=== PATIENT | male | born 1970 | race Caucasian/White ===

== ENCOUNTER → 2019-01-13 15:12 | Outpatient (CLI) | payer BC, SELFPAY ==
[2019-01-13 16:45] LABS: Basophils # 0.1 K/mm3 (0-0.2); Eosinophils # 0.9 K/mm3 (0.0-0.4); Eosinophils % 11.7 % (0.1-12.0); Hematocrit 47.9 % (42.0-52.0); Hemoglobin 15.6 g/dL (14.1-18.0); Lymphocytes # 1.4 K/mm3 (0.7-4.5); Lymphocytes % 19.2 % (10-50); Mean Corpuscular HGB Conc 32.6 g/dL (31.8-35.4); Mean Corpuscular Hemoglobin 30.7 pg (27.0-31.2); Mean Platelet Volume 8.7 fl (7.4-10.4); Monocytes # 0.5 K/mm3 (0.1-1.0); Monocytes % 6.1 % (1.7-9.3); Neutrophils # 4.5 K/mm3 (1.8-7.8); Platelet Count 363 K/mm3 (142-424); Red Blood Count 5.09 M/mm3 (4.60-6.20); Red Cell Distribution Width 13.1 % (11.5-17.5); White Blood Count 7.3 K/mm3 (4.8-10.8)
[2019-01-13 18:31] LABS: Alanine Aminotransferase 34 U/L (12-78); Albumin/Globulin Ratio 1.2 (1.1-1.8); Alkaline Phosphatase 85 U/L (46-116); Anion Gap 12.5 mEq/L (5-15); Aspartate Amino Transferase 17 U/L (15-37); Bilirubin,Total 0.2 mg/dL (0.2-1.0); Blood Urea Nitrogen 17 mg/dL (7-18); Calcium 9.2 mg/dL (8.5-10.1); Carbon Dioxide 29 mmol/L (21.0-32.0); Chloride 102 mmol/L (98-107); Cholesterol 209 mg/dL (140-200); Creatinine,Serum 1.22 mg/dL (0.70-1.30); Estimated Glomerular Filt Rate 63 ml/min (>60); Free T4 (Free Thyroxine) 0.77 ng/dl (0.76-1.46); GFR (African American) 77 ML/MIN (>60); Globulin 3.3 gm/dl (1.3-3.2); Glucose 94 mg/dL (74-106); HDL Cholesterol 70 mg/dL (27-67); LDL Cholesterol 105 mg/dL (0-130); Potassium 4.5 mmoL/L (3.5-5.1); Sodium 139 mmol/L (136-145); Thyroid Stimulating Hormone 0.88 uIU/ml (0.358-3.740); Total Protein,Serum 7.3 gm/dL (6.4-8.2); Triglycerides 171 mg/dL (30-200); VLDL Cholesterol 34 mg/dL (0-40)
[2019-01-15 12:03] LABS: Vitamin D 25 Hydroxy 21.4 ng/mL (30.0-100.0)
== END ==
PROVIDERS: Visit Provider Emergency Medicine
DX: R07.9 Chest pain, unspecified (principal); R53.83 Other fatigue; E55.9 Vitamin D deficiency, unspecified
CPT/HCPCS: 80053; 80061; 82652; 84439; 84443; 85025

== ENCOUNTER → 2019-01-27 11:15 | Outpatient (CLI) | payer BC, SELFPAY ==
--- NOTE | 2019-01-27 | CA_ITS ---
APPROVED REPORT Exam: Exercise Treadmill Technologist: Isabel Dennis Ht: 6 ft 0 in Wt: 240 lbs BSA: 2.30 m2 HR: 62 bpm BP: 127/85 mmHg Indications: Fatigue, chest pain Medical History Medications: Lisinopril,,,,, Stress Test Details Test: Srinivasan HR Resting HR: 61 bpm Max Heart Rate (APMHR): 172 bpm Max HR Achieved: 163 bpm Target HR (85% APMHR): 146 bpm % of APMHR: 94 Recovery HR: 73 bpm BP Resting BP: 127.0/85.0 mmHg Max BP: 190.0/102.0 mmHg Recovery BP: 162.0/87.0 mmHg ECG Clinical Exercise duration: 11:01 min Highest Stage Achieved: Exercise capacity: 12.8 METs Stress ECG Conclusion Resting ECG: Sinus rhythm Srinivasan protocol completed. Patient exercised 11:01. Test stopped due to leg fatigue. Symptoms: Leg fatigue at peak exercise, resolved in recovery. No chest pain. Arrhythmias/Ectopy: Occasional PVC. Occasional PAC. ST-T Changes: Greater than 1.[address] depression. Conclusion: Images to follow. Test Summary REST . . . . . . . Sitting REST 09:12 0.0 0.0 61 . 127/ 85 . . Stage 1 01:00 10.0 1.7 88 . . . . Stage 1 02:00 10.0 1.7 93 . . . . Stage 1 03:00 10.0 1.7 96 . 130/ 84 . . Stage 2 01:00 12.0 2.5 104 . . . . Stage 2 02:00 12.0 2.5 106 . . . . Stage 2 03:00 12.0 2.5 117 . 150/ 92 . . Stage 3 01:00 14.0 3.4 122 . . . . Stage 3 02:00 14.0 3.4 129 . . . . Stage 3 03:00 14.0 3.4 131 . 158/ 96 . . Stage 4 01:00 16.0 4.2 148 . . . . Stage 4 02:00 16.0 4.2 162 . . . . Stage 4 02:01 16.0 4.2 162 . . . Stop exercise at 11:01 RECOVERY 01:00 0.0 0.0 135 . 190/102 . . RECOVERY 02:00 0.0 0.0 105 . 190/102 . . RECOVERY 03:00 0.0 0.0 78 . 190/102 . . RECOVERY 04:00 0.0 0.0 75 . 178/ 88 . . RECOVERY 04:59 0.0 0.0 74 . 162/ 87 . . Electronically signed by : Avery Correia, 01/28/2019 06:40:00
--- NOTE | 2019-01-27 11:17 | NM_ITS ---
APPROVED REPORT Exam: Nuclear Stress Test Indication: Chest pain, SOB, Fatigue, HTN Patient Location: Outpatient Stress Tech: Isabel Dennis NM Tech:Greta Garrett, ARRT, RT (R)(N) Ht: 6 ft 0 in Wt: 240 lbs HR: 62 bpm BP: 127/85 mmHg BSA: 2.30 m2 History: Chest pain, SOB, Fatigue, HTN Procedure: Patient exercised on Srinivasan protocol 11:01 minutes and sec, resting heart rate 62 bpm, resting blood pressure 127/85 mmHg, with exercise maximum heart rate achived was 163 bpm which is Greater than 85 % of the maximum predicted heart rate and blood pressure was 190/102 mmHg. Test was stopped due to sob. Patient denied any complaint of chest pain. Patient has Good exercise capacity, achieved 12.8 METs of workload on treadmill, the blood pressure response to exercise was Hypertensive. Electrocardiogram Resting electrocardiogram showed sinus rhythm, with exercise there is less than 1.[address] segment depression noted from the baseline EKG. The EKG portion of the exercise Myoview is negative for ischemia. Cardiac Stress and Resting SPECT Images: Cardiac Stress and Resting SPECT images were obtained using technetium 99m Myoview 32.5 mCi stress and 10.50 mCi at rest. Gated SPECT with analysis of segmental wall motion and calculation of the ejection fraction also done. Cardiac stress and resting SPECT images show uniform myocardial activity without segmental perfusion abnormality, computer derived ejection fraction is over 65% with no regional wall motion abnormality, right ventricle is normal size and contractility. Conclusion: 1. The EKG portion of the exercise Myoview is negative for ischemia, she has good exercise capacity achieved 12.8 mets of workload on treadmill, the blood pressure response to exercise was hypertensive, there was no exercise-induced chest discomfort, test was stopped due to shortness of breath. 2. No scintigraphic evidence of reversible ischemia seen at this level of exercise, computer derived ejection fraction is over 65% with no regional wall motion abnormality, right ventricle is normal size and contractility. 3. Normal exercise Myoview study except for hypertensive blood pressure response. Electronically signed by : Avery Correia, 01/28/2019 06:46:29
--- NOTE | 2019-01-27 13:07 | HMH.ITSHM ---
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 []LISINOPRIL
== END ==
PROVIDERS: PCP Emergency Medicine; Visit Provider Emergency Medicine
DX: R07.9 Chest pain, unspecified (principal)
CPT/HCPCS: 78452; 93017; A9502

== ENCOUNTER → 2019-02-09 19:59 | Outpatient (CLI) | payer BC, SELFPAY | PROVIDERS: PCP Emergency Medicine; Visit Provider Emergency Medicine | DX: G47.33 Obstructive sleep apnea (adult) (pediatric) (principal); I10 Essential (primary) hypertension; R40.0 Somnolence; R06.00 Dyspnea, unspecified | CPT/HCPCS: 95810 ==

== ENCOUNTER → 2019-07-09 13:20 | Outpatient (CLI) | payer BC, SELFPAY ==
--- NOTE | 2019-07-09 13:24 | XR_ITS ---
PROCEDURE: XR FOOT WT BEARING RT 3V CLINICAL INDICATION: pain Heel pain COMPARISON: Foot R from 10/16/2018 FINDINGS: No fracture or dislocation. There are mild osteoarthritic changes at the ankle joint with mild spurring at the anterior distal tibia. Mild osteoarthritis also noted at the 1st metatarsophalangeal joint and at the 1st tarsal metatarsal joint. There is borderline pes planus. There is a small calcaneal spur without erosion. There is mild prominence of the posterior talar process. IMPRESSION: Mild degenerative changes as described above. Small calcaneal spur unchanged. Mildly prominent posterior talar process Dictated by: Isaac Ramírez MD 07/09/2019 14:20 Electronically signed by Isaac Ramírez MD in [place] 07/09/2019 14:20
--- NOTE | 2019-07-09 13:24 | XR_ITS ---
PROCEDURE: XR FOOT WT BEARING LT 3V CLINICAL INDICATION: pain COMPARISON: Foot R from 10/16/2018 FINDINGS: No fracture or dislocation. No lytic or blastic change. There is normal mineralization. There are minimal osteoarthritic changes at the 1st metatarsophalangeal joint. Osteoarthritic changes are also present at the ankle joint with of the anterior distal tibia and mild hypertrophic change of the talus. There is a small calcaneal spur without erosion and there is mildly prominent posterior talar process. Other findings:None. IMPRESSION: Degenerative changes, no acute finding. Small calcaneal spur and mildly prominent posterior talar process Dictated by: Isaac Ramírez MD 07/09/2019 14:21 Electronically signed by Isaac Ramírez MD in [facility] 07/09/2019 14:21
== END ==
PROVIDERS: PCP Emergency Medicine; Visit Provider Podiatrist
DX: M79.671 Pain in right foot (principal); M79.672 Pain in left foot
CPT/HCPCS: 73630

== ENCOUNTER → 2020-03-30 10:31 | Outpatient (CLI) | payer BC, SELFPAY ==
[2020-03-31 10:32] LABS: Covid-19 Nasal PCR Sendout P&C POSITIVE
== END ==
PROVIDERS: PCP Emergency Medicine; Visit Provider Physician Assistant
DX: U07.1 COVID-19 (principal)
CPT/HCPCS: U0004

== ENCOUNTER → 2020-04-11 17:06 | Outpatient (CLI) | payer BC, SELFPAY ==
[2020-04-11 18:51] LABS: Basophils # 0.1 K/mm3 (0-0.2); Basophils % 0.7 % (0.1-2.0); Eosinophils # 0.2 K/mm3 (0.0-0.4); Eosinophils % 3.6 % (0.1-12.0); Hematocrit 43.2 % (42.0-52.0); Hemoglobin 14.8 g/dL (14.1-18.0); Lymphocytes % 29.6 % (10-50); Mean Corpuscular HGB Conc 34.2 g/dL (31.8-35.4); Mean Corpuscular Hemoglobin 31.2 pg (27.0-31.2); Mean Corpuscular Volume 91.4 fl (80-94); Mean Platelet Volume 8.2 fl (7.4-10.4); Monocytes # 0.5 K/mm3 (0.1-1.0); Monocytes % 8.1 % (1.7-9.3); Neutrophils # 3.8 K/mm3 (1.8-7.8); Neutrophils % 57.9 % (37.0-80.0); Platelet Count 401 K/mm3 (142-424); Red Blood Count 4.73 M/mm3 (4.60-6.20); Red Cell Distribution Width 13.1 % (11.5-17.5); White Blood Count 6.6 K/mm3 (4.8-10.8)
[2020-04-11 19:02] LABS: Alanine Aminotransferase 30 U/L (12-78); Albumin Level 4.5 g/dl (3.5-5.0); Albumin/Globulin Ratio 1.6 (1.1-1.8); Alkaline Phosphatase 96 U/L (38-126); Anion Gap 9.7 mEq/L (5-15); Aspartate Amino Transferase 33 U/L (17-59); Bilirubin,Total 0.4 mg/dl (0.2-1.3); Blood Urea Nitrogen 15 mg/dl (9-20); Calcium 9.8 mg/dl (8.4-10.2); Carbon Dioxide 28 mmol/L (22.0-30.0); Chloride 103 mmol/L (98-107); Chol/HDL Ratio 2.8 (1-3.5); Cholesterol 210 mg/dl (140-200); Estimated Glomerular Filt Rate 90 ml/min (>60); GFR (African American) 109 ML/MIN (>60); Globulin 2.8 g/dL (1.3-3.2); Glucose 110 mg/dl (74-100); HDL Cholesterol 76 mg/dl (40-60); Potassium 4.7 mmoL/L (3.5-5.1); Sodium 136 mmol/L (136-145); Total Protein,Serum 7.3 g/dl (6.3-8.2); Triglycerides 204 mg/dl (30-150); VLDL Cholesterol 41 mg/dL (0-40)
[2020-04-11 19:13] LABS: Direct LDL Cholesterol 110.67 mg/dL (100-129)
[2020-04-11 19:19] LABS: Free T4 (Free Thyroxine) 0.95 ng/dl (0.78-2.19)
[2020-04-11 19:20] LABS: 25-OH Vitamin D, Total 27.4 ng/mL (30-100)
[2020-04-11 19:33] LABS: Thyroid Stimulating Hormone 0.83 uIU/mL (0.465-4.68)
== END ==
PROVIDERS: Visit Provider Physician Assistant
DX: I10 Essential (primary) hypertension (principal); E55.9 Vitamin D deficiency, unspecified; Z79.899 Other long term (current) drug therapy
CPT/HCPCS: 80053; 80061; 82306; 84439; 84443; 85025

== ENCOUNTER → 2020-05-17 15:00 | Outpatient (POV) | payer BC, SELFPAY | PROVIDERS: Visit Provider Dermatology | DX: Z00.00 Encounter for general adult medical examination without abnormal findings (principal) ==

== ENCOUNTER 2020-08-03 20:08 | Emergency (ER) | payer BC, SELFPAY ==
[2020-08-03 20:11] VITALS: BMI 29.1
--- NOTE | 2020-08-03 20:11 | XR_ITS ---
PROCEDURE INFORMATION: Exam: XR Chest Exam date and time: 08/03/20 08:11 PM Age: 49 years old Clinical indication: Injury or trauma; Fall; Blunt trauma (contusions or hematomas); Injury date: 08/03/2020; Injury details: Fell 5 ft from a ladder; Patient HX: Fell off ladder 5 ft TECHNIQUE: Imaging protocol: XR of the chest. Views: 1 view. COMPARISON: No relevant prior studies available. FINDINGS: Lungs: Unremarkable. No consolidation. Pleural spaces: Unremarkable. No pleural effusion. No pneumothorax. Heart/Mediastinum: Unremarkable. No cardiomegaly. Bones/joints: Unremarkable. IMPRESSION: No acute findings.
--- NOTE | 2020-08-03 20:11 | XR_ITS ---
PROCEDURE INFORMATION: Exam: XR Pelvis Exam date and time: 08/03/20 08:11 PM Age: 49 years old Clinical indication: Injury or trauma; Fall; Blunt trauma (contusions or hematomas); Bilateral; Pelvic region; Injury date: 08/03/2020; Injury details: Fell 5 ft from ladder TECHNIQUE: Imaging protocol: XR pelvis. Views: 1 or 2 view. COMPARISON: No relevant prior studies available. FINDINGS: Bones/joints: Unremarkable. No acute fracture. Soft tissues: Unremarkable. IMPRESSION: No acute findings.
--- NOTE | 2020-08-03 20:12 | CT_ITS ---
PROCEDURE INFORMATION: Exam: CT Abdomen And Pelvis With Contrast Exam date and time: 08/03/20 08:12 PM Age: 49 years old Clinical indication: Injury or trauma; Fall; Blunt; Generalized; Injury date: 08/03/2020; Injury details: Fell 5 ft from ladder landed on left side; Additional info: Fall/trauma protocol TECHNIQUE: Imaging protocol: Computed tomography of the abdomen and pelvis with contrast. Radiation optimization: All CT scans at this facility use at least one of these dose optimization techniques: automated exposure control; mA and/or kV adjustment per patient size (includes targeted exams where dose is matched to clinical indication); or iterative reconstruction. Contrast material: ISOVUE; Contrast volume: 100 ml; Contrast route: IV; COMPARISON: CR XR PELVIS 1-2V 08/03/20 08:17 PM FINDINGS: Tubes, catheters and devices: None noted. Lungs: Lung bases appear clear. Heart: No significant coronary calcifications. No cardiomegaly. No significant pericardial effusion. Liver: Normal. No mass. Gallbladder and bile ducts: Normal. No calcified stones. No ductal dilation. Pancreas: Normal. No ductal dilation. Spleen: Normal. No splenomegaly. Adrenal glands: Normal. No mass. Kidneys and ureters: Normal. No hydronephrosis. Stomach and bowel: Unremarkable. No obstruction. No mucosal thickening. Appendix: Appendix is well visualized. No evidence of appendicitis. Intraperitoneal space: Unremarkable. No free air. No significant fluid collection. Retroperitoneal space: No significant retroperitoneal inflammatory changes are noted. Vasculature: Unremarkable. No abdominal aortic aneurysm. Lymph nodes: Unremarkable. No enlarged lymph nodes. Urinary bladder: Unremarkable as visualized. Reproductive: Unremarkable as visualized. Bones/joints: Unremarkable. No acute fracture. Soft tissues: Unremarkable. IMPRESSION: No acute traumatic findings.
--- NOTE | 2020-08-03 20:12 | CT_ITS ---
PROCEDURE INFORMATION: Exam: CTA Chest With Contrast Exam date and time: 08/03/20 08:12 PM Age: 49 years old Clinical indication: Injury or trauma; Fall; Blunt trauma (contusions or hematomas); Injury date: 08/03/2020; Injury details: Fell 5 ft from ladder and hit back of head and landed on left side of body; Additional info: Fall/trauma protocol TECHNIQUE: Imaging protocol: Computed tomographic angiography of the chest with contrast. 3D rendering (Not supervised by radiologist): MIP and/or 3D reconstructed images were created by the technologist. Radiation optimization: All CT scans at this facility use at least one of these dose optimization techniques: automated exposure control; mA and/or kV adjustment per patient size (includes targeted exams where dose is matched to clinical indication); or iterative reconstruction. Contrast material: ISCVUE 370; Contrast volume: 100 ml; Contrast route: INTRAVENOUS (IV); COMPARISON: CR XR CHEST PORTABLE 08/03/20 08:14 PM FINDINGS: Pulmonary arteries: Normal. No pulmonary emboli. Aorta: Unremarkable. No aortic aneurysm. No aortic dissection. Lungs: Minimal dependent atelectasis. No consolidation. No masses. Pleural spaces: Unremarkable. No pneumothorax. No pleural effusion. Heart: Unremarkable. No cardiomegaly. No pericardial effusion. Lymph nodes: Unremarkable. No enlarged lymph nodes. Bones/joints: Unremarkable. No acute fracture. Soft tissues: Unremarkable. IMPRESSION: No acute traumatic findings.
--- NOTE | 2020-08-03 20:12 | CT_ITS ---
PROCEDURE INFORMATION: Exam: CT Cervical Spine Without Contrast Exam date and time: 08/03/20 08:12 PM Age: 49 years old Clinical indication: Injury or trauma; Fall; Blunt trauma; Injury date: 08/03/2020; Injury details: Fell 5 ft from ladder and hit back of head left side laceration seen left post head TECHNIQUE: Imaging protocol: Computed tomography images of the cervical spine without contrast. Radiation optimization: All CT scans at this facility use at least one of these dose optimization techniques: automated exposure control; mA and/or kV adjustment per patient size (includes targeted exams where dose is matched to clinical indication); or iterative reconstruction. COMPARISON: No relevant prior studies available. FINDINGS: Vertebrae: No acute fracture. Normal alignment. C2-C3: No significant disc protrusion. No severe spinal canal stenosis. No significant neural foraminal narrowing. C3-C4: No significant disc protrusion. No severe spinal canal stenosis. No significant neural foraminal narrowing. C4-C5: No significant disc protrusion. No severe spinal canal stenosis. No significant neural foraminal narrowing. C5-C6: No significant disc protrusion. No severe spinal canal stenosis. No significant neural foraminal narrowing. C6-C7: No significant disc protrusion. No severe spinal canal stenosis. No significant neural foraminal narrowing. C7-T1: No significant disc protrusion. No severe spinal canal stenosis. No significant neural foraminal narrowing. Soft tissues: Unremarkable. Lungs: Lung apices are normal. IMPRESSION: No acute findings.
--- NOTE | 2020-08-03 20:12 | CT_ITS ---
PROCEDURE INFORMATION: Exam: CT Head Without Contrast Exam date and time: 08/03/20 08:12 PM Age: 49 years old Clinical indication: Injury or trauma; Fall; Blunt trauma (contusions or hematomas); Without loss of consciousness; Injury date: 08/03/2020; Injury details: Fell 5 ft from ladder and hit left post head laceration seen TECHNIQUE: Imaging protocol: Computed tomography of the head without contrast. Radiation optimization: All CT scans at this facility use at least one of these dose optimization techniques: automated exposure control; mA and/or kV adjustment per patient size (includes targeted exams where dose is matched to clinical indication); or iterative reconstruction. COMPARISON: No relevant prior studies available. FINDINGS: Brain: Normal. No hemorrhage. Unremarkable white matter. No mass effect. Cerebral ventricles: No ventriculomegaly. Paranasal sinuses: Visualized sinuses are unremarkable. No fluid levels. Mastoid air cells: Visualized mastoid air cells are well aerated. Bones/joints: Unremarkable. No acute fracture. Soft tissues: Unremarkable. IMPRESSION: No acute intracranial abnormality.
[2020-08-03 20:14] VITALS: BP 156/93; PULSE 66; RESP 16; TEMP 36.9; O2SAT 95
[2020-08-03 20:21] LABS: Basophils # 0.1 K/mm3 (0-0.2); Basophils % 0.9 % (0.1-2.0); Eosinophils # 0.2 K/mm3 (0.0-0.4); Eosinophils % 2.7 % (0.1-12.0); Hematocrit 43.9 % (42.0-52.0); Hemoglobin 14.7 g/dL (14.1-18.0); Lymphocytes % 28.3 % (10-50); Mean Corpuscular HGB Conc 33.5 g/dL (31.8-35.4); Mean Corpuscular Hemoglobin 30.3 pg (27.0-31.2); Mean Corpuscular Volume 90.5 fl (80-94); Mean Platelet Volume 7.1 fl (7.4-10.4); Monocytes # 0.5 K/mm3 (0.1-1.0); Neutrophils # 4.4 K/mm3 (1.8-7.8); Platelet Count 380 K/mm3 (142-424); Red Blood Count 4.85 M/mm3 (4.60-6.20); Red Cell Distribution Width 13.1 % (11.5-17.5); White Blood Count 7.2 K/mm3 (4.8-10.8)
--- NOTE | 2020-08-03 20:24 | CT_ITS ---
PROCEDURE INFORMATION: Exam: CT Left Lower Extremity Without Contrast, Hip Exam date and time: 08/03/20 08:24 PM Age: 49 years old Clinical indication: Injury or trauma; Fall; Blunt trauma; Injury date: 08/03/2020; Patient HX: Fell 5 ft from ladder and pain in left hip; Additional info: Fall/trauma TECHNIQUE: Imaging protocol: CT of the Left lower extremity without contrast was performed. Exam focused on the hip. 3D rendering (Not supervised by radiologist): MIP and/or 3D reconstructed images were created by the technologist. Radiation optimization: All CT scans at this facility use at least one of these dose optimization techniques: automated exposure control; mA and/or kV adjustment per patient size (includes targeted exams where dose is matched to clinical indication); or iterative reconstruction. COMPARISON: CR XR PELVIS 1-2V 08/03/20 08:17 PM FINDINGS: Bones/joints: Normal. No acute fracture or dislocation. Soft tissues: Normal. IMPRESSION: Unremarkable CT.
[2020-08-03 20:29] LABS: Alanine Aminotransferase 35 U/L (12-78); Albumin Level 4.5 g/dl (3.5-5.0); Albumin/Globulin Ratio 1.6 (1.1-1.8); Alkaline Phosphatase 82 U/L (38-126); Anion Gap 9.2 mEq/L (5-15); Aspartate Amino Transferase 38 U/L (17-59); Bilirubin,Total 0.5 mg/dl (0.2-1.3); Blood Urea Nitrogen 17 mg/dl (9-20); Calcium 8.8 mg/dl (8.4-10.2); Carbon Dioxide 26 mmol/L (22.0-30.0); Chloride 104 mmol/L (98-107); Creatinine Clearance Estimated 123 mL/min (50-200); Estimated Glomerular Filt Rate 79 ml/min (>60); GFR (African American) 96 ML/MIN (>60); Globulin 2.9 g/dL (1.3-3.2); Glucose 111 mg/dl (74-100); Potassium 4.2 mmoL/L (3.5-5.1); Sodium 135 mmol/L (136-145); Total Protein,Serum 7.4 g/dl (6.3-8.2)
--- NOTE | 2020-08-03 20:29 | PC.NURSE ---
Pt to CT
--- NOTE | 2020-08-03 21:06 | HMH.EDFALL ---
ED Disposition Clinical Impression: Fall Qualifiers: Encounter type: initial encounter Qualified Code(s): W19.XXXA - Unspecified fall, initial encounter Scalp laceration Qualifiers: Encounter type: initial encounter Qualified Code(s): S01.01XA - Laceration without foreign body of scalp, initial encounter Contusion of hip, left Qualifiers: Encounter type: initial encounter Qualified Code(s): S70.02XA - Contusion of left hip, initial encounter Concussion Qualifiers: Encounter type: initial encounter Loss of consciousness presence/duration: without LOC Qualified Code(s): S06.0X0A - Concussion without loss of consciousness, initial encounter Disposition: Home, Self-Care Condition on Discharge: Good Instructions: DI for Concussion Additional Instructions: bakari out 10 days and recheck with pcp this week Referrals: Provider,Referral, [Referring] - - Critical Care Critical Care Time: No Attestation: On 08/03/20, the high probability of a clinically significant, sudden or life threatening deterioration of the following system(s) required my full and direct attention, intervention and personal management. The time I documented below is in addition to time spent performing reported procedures but includes the following listed in this critical care notation. Medical Decision Making - Medical Records Medical records reviewed: Yes: I reviewed the patient's medical records. - Alex Inquiry Pt receiving controlled substance: No Vital Signs: 08/03/20 20:14 08/03/20 21:51 Temperature 98.5 F Temperature Source Oral Pulse Rate 70 Pulse Rate [Right] 66 Respiratory Rate 16 16 Blood Pressure 141/91 H Blood Pressure [Right Arm] 156/93 H Blood Pressure Mean [Right Arm] 114 Blood Pressure Source Automatic Cuff Blood Pressure Position Sitting Blood Pressure Position [Right Arm] Sitting 02 Sat by Pulse Oximetry 95 98 Oxygen Delivery Method Room Air Room Air - Lab Data Lab results reviewed: Yes: I reviewed the patient's lab results. Lab Results 08/03/20 20:05: WBC 7.2, RBC 4.85, Hgb 14.7, Hct 43.9, MCV 90.5, MCH 30.3, MCHC 33.5, RDW 13.1, Plt Count 380, MPV 7.1 L, Neut % (Auto) 61.0, Lymph % (Auto) 28.3, [place] % (Auto) 7.0, Eos % (Auto) 2.7, Baso % (Auto) 0.9, Neut # (Auto) 4.4, Lymph # (Auto) 2.0, [place] # (Auto) 0.5, Eos # (Auto) 0.2, Baso # (Auto) 0.1 08/03/20 20:05: Sodium 135 L, Potassium 4.2, Chloride 104, Carbon Dioxide 26, Anion Gap 9.2, BUN 17, Creatinine 1.00, Estimated Creat Clear 123, Estimated GFR 79, Est GFR ( Amer) 96, Glucose 111 H, Calcium 8.8, Total Bilirubin 0.5, AST 38, ALT 35, Alkaline Phosphatase 82, Total Protein 7.4, Albumin 4.5, Globulin 2.9, Albumin/Globulin Ratio 1.6 Result diagrams: 08/03/20 20:05 08/03/20 20:05 Orders (Tests/Meds): ED MEDICATIONS Generic Name Dose Route Start Last Admin Trade Name Freq PRN Reason Stop Dose Admin Sodium Chloride 1,000 mls @ 999 mls/hr 08/03/20 20:30 08/03/20 20:25 Sod Chlor 0.9% 1000ml Bag IV 08/03/20 21:30 999 mls/hr .Q1H1M RODO Administration Discontinued Medications Generic Name Dose Route Start Last Admin Trade Name Freq PRN Reason Stop Dose Admin Ketorolac Tromethamine 30 mg 08/03/20 21:29 08/03/20 21:33 Ketorolac 30mg/Ml Vial IV 08/03/20 21:30 30 mg ONCE ONE Administration Morphine Sulfate 4 mg 08/03/20 20:23 08/03/20 20:25 Morphine 4mg/Ml Syringe IV 08/03/20 20:24 4 mg ONCE ONE Administration Ondansetron HCl 4 mg 08/03/20 20:23 08/03/20 20:25 Ondansetron 4mg/2ml Vial IV 08/03/20 20:24 4 mg ONCE ONE Administration Tetanus/Reduced Diphtheria/Acell Pertussis 0.5 ml 08/03/20 22:23 08/03/20 22:32 Tet/Diphth/Pert-Adult 0.5ml Syringe IM 08/03/20 22:24 0.5 ml .ONCE ONE Administration - Radiology Data #1 Image(s): Chest, Pelvis Image Reviewed: Yes I reviewed the patient's radiology image Preliminary Findings: No Fracture Seen - CT Data CT Scan: He
[2020-08-03 21:51] VITALS: BP 141/91; PULSE 70; RESP 16; O2SAT 98
--- NOTE | 2020-08-03 21:54 | PC.NURSE ---
Pt able to stand and walk to restroom. Wound on head cleaned at this time
[2020-08-03 23:13] VITALS: BP 161/98; PULSE 87; RESP 16; TEMP 36.8; O2SAT 98
== END 2020-08-03 23:15 | disposition home or self-care (01) ==
PROVIDERS: Emergency Provider Emergency Medicine; PCP Emergency Medicine
DX: S01.01XA Laceration without foreign body of scalp, initial encounter (principal); S06.0X0A Concussion without loss of consciousness, initial encounter; S70.02XA Contusion of left hip, initial encounter; I10 Essential (primary) hypertension; Z23 Encounter for immunization; F33.1 Major depressive disorder, recurrent, moderate; W11.XXXA Fall on and from ladder, initial encounter; Y92.019 Unspecified place in single-family (private) house as the place of occurrence of the external cause
CPT/HCPCS: 12001; 70450; 71045; 71275; 72125; 72170; 73700; 74177; 80053; 85025; 90715; 96374; 96375; 99281; J2405

== ENCOUNTER 2020-08-29 00:58 | Emergency (ER) | payer BC, SELFPAY ==
[2020-08-29 01:04] VITALS: BP 150/87; PULSE 72; RESP 18; TEMP 36.6; O2SAT 98; BMI 29.1
--- NOTE | 2020-08-29 01:09 | HMH.EDALLER ---
ED Disposition Clinical Impression: Allergic reaction Qualifiers: Encounter type: initial encounter Qualified Code(s): T78.40XA - Allergy, unspecified, initial encounter Disposition: Home, Self-Care Condition on Discharge: Good Referrals: Marco Antonio Blancas MD [Primary Care Provider] - - Critical Care Critical Care Time: No Attestation: On , the high probability of a clinically significant, sudden or life threatening deterioration of the following system(s) required my full and direct attention, intervention and personal management. The time I documented below is in addition to time spent performing reported procedures but includes the following listed in this critical care notation. Medical Decision Making - Medical Records Medical records reviewed: Yes: I reviewed the patient's medical records. - Alex Inquiry Pt receiving controlled substance: No Vital Signs: 08/29/20 01:04 Temperature 97.8 F Temperature Source Oral Pulse Rate [Right Brachial] 72 Respiratory Rate 18 Blood Pressure [Right Arm] 150/87 H Blood Pressure Mean [Right Arm] 108 Blood Pressure Source [Right Arm] Automatic Cuff Blood Pressure Position [Right Arm] Sitting 02 Sat by Pulse Oximetry 98 Oxygen Delivery Method Room Air Orders (Tests/Meds): ED MEDICATIONS Generic Name Dose Route Start Last Admin Trade Name Freq PRN Reason Stop Dose Admin Sodium Chloride 8 ml 08/29/20 01:07 Sodium Chloride 0.9% 10ml Vial IV 09/28/20 01:06 NEEDED PRN dilute pepcid Discontinued Medications Generic Name Dose Route Start Last Admin Trade Name Freq PRN Reason Stop Dose Admin Dexamethasone Sodium Phosphate 8 mg 08/29/20 01:07 Dexamethasone 4mg/Ml 1ml Vial IV 08/29/20 01:08 ONCE ONE Famotidine 20 mg 08/29/20 01:07 Famotidine 20mg/2ml Vial IV 08/29/20 01:08 ONCE ONE Medical Decision Narrative: No evidence of a respiratory involvement. No angioedema or tongue swelling. There is no wheezing or stridor and SPO2 is 99% on room air. We will go ahead and treat with famotidine which is in addition to the H1 inhibitor he took at home. We will also give a dose of dexamethasone IV to prevent any delayed hypersensitivity reaction. Patient is encouraged to place mushrooms on his list of allergies and will be referred to allergy and asthma for consideration of skin testing. Allergic React/Insect Bite HPI - General Chief complaint: Allergic Reaction Stated complaint: ? allergic reaction to mushrooms itching all over Time Seen by Provider: 08/29/20 01:05 Mode of Arrival - ED Triage: Family Vehicle Limitations: No Limitations - History of Present Illness HPI narrative: This is a 49-year-old male that presents with complaints of generalized pruritus and feelings of shortness of breath. Patient attributes this to recent mushroom ingestion approximately 6 to 7 hours prior. He denies any wheezing or stridor. He denies any airway or lip swelling. No tongue swelling as well. Symptoms are moderate intensity but have improved since taking diphenhydramine at home. Allergies/Adverse Reactions: Allergies Allergy/AdvReac Type Severity Reaction Status Date / Time No Known Allergies Allergy Verified 08/03/20 20:50 - Related Data Home Medications Medication Instructions Recorded Confirmed Cholecalciferol (Vitamin D3) 25 mcg PO DAILY 08/03/20 08/03/20 [Vitamin D3 1,000 Unit Cap] Ergocalciferol (Vitamin D2) 1,250 mcg PO WEEKLY 08/03/20 08/03/20 [Drisdol] Venlafaxine HCl [Effexor Xr] 37.5 mg PO DAILY 08/03/20 08/03/20 lisinopriL [Lisinopril] See Rx Instructions .ROUTE .COMPLEX 08/03/20 08/03/20 Previous Rx's Medication Instructions Recorded meloxicam 7.5 mg tablet 7.5 mg PO DAILY 30 Days #30 tab 07/14/19 lorazepam 0.5 mg tablet 0.5 mg PO BID PRN #60 tab 05/30/20 azithromycin 250 mg tablet See Rx Instructions PO .COMPLEX #6 08/11/20 tab methylprednisolone 4 mg tablets in S
[2020-08-29 01:30] VITALS: BP 137/86; PULSE 71; O2SAT 96
[2020-08-29 02:02] VITALS: BP 126/86; PULSE 74; RESP 17; TEMP 36.7; O2SAT 96
== END 2020-08-29 02:05 | disposition home or self-care (01) ==
LOC: ER 01:18
PROVIDERS: Emergency Provider Emergency Medicine; PCP Emergency Medicine
DX: T78.40XA Allergy, unspecified, initial encounter (principal); I10 Essential (primary) hypertension; F33.1 Major depressive disorder, recurrent, moderate; Z79.899 Other long term (current) drug therapy; F17.210 Nicotine dependence, cigarettes, uncomplicated
CPT/HCPCS: 96375; 99281

== ENCOUNTER → 2021-12-19 05:43 | Outpatient (CLI) | payer BC, SELFPAY | PROVIDERS: PCP Emergency Medicine; Visit Provider Emergency Medicine | DX: U07.1 COVID-19 (principal); R05.9 Cough, unspecified; J02.9 Acute pharyngitis, unspecified | CPT/HCPCS: C9803; U0003; U0005 ==

== ENCOUNTER → 2022-04-16 14:42 | Outpatient (CLI) | payer BC, SELFPAY ==
--- NOTE | 2022-04-16 14:47 | XR_ITS ---
FINAL REPORT CLINICAL HISTORY: hip pain FINDINGS: LEFT HIP Two views of the left hip demonstrate no acute fracture or dislocation. The joint spaces appear normal. The visualized bony structures are well aligned. No soft tissue abnormality is seen. IMPRESSION: No acute bony abnormality. Reviewed, Interpreted and Dictated by Gurmeet Lund MD Transcribed by Jodie Siegel Authenticated and . [facility]
--- NOTE | 2022-04-16 14:47 | XR_ITS ---
FINAL REPORT CLINICAL HISTORY: back pain FINDINGS: LUMBAR SPINE Six views were obtained. There is no acute fracture. There is no malalignment. There is mild anterior osteophyte formation at L3-4 and L4-5. There is no soft tissue abnormality. IMPRESSION: No acute bony abnormality. Reviewed, Interpreted and Dictated by Gurmeet Lund MD Transcribed by Jodie Siegel Authenticated and . [facility]
--- NOTE | 2022-04-16 14:54 | XR_ITS ---
FINAL REPORT CLINICAL HISTORY: PAIN FINDINGS: RIGHT HIP Two views of the right hip with an AP pelvis demonstrate no acute fracture or dislocation. The joint spaces appear normal. The visualized bony structures are well aligned. No soft tissue abnormality is seen. IMPRESSION: No acute bony abnormality. Reviewed, Interpreted and Dictated by Gurmeet Lund MD Transcribed by Jodie Siegel Authenticated and [facility]
== END ==
PROVIDERS: PCP Emergency Medicine; Visit Provider Emergency Medicine
DX: M54.9 Dorsalgia, unspecified (principal); M54.50 Low back pain, unspecified; M25.552 Pain in left hip; M25.551 Pain in right hip
CPT/HCPCS: 72110; 73502

== ENCOUNTER → 2022-04-19 23:41 | Outpatient (CLI) | payer BC, SELFPAY ==
[2022-04-19 18:55] LABS: Erythrocyte Sedimentation Rate 8 mm/hr (0-20)
[2022-04-19 19:20] LABS: C-Reactive Protein 0.6 mg/L (0-4)
[2022-05-03 22:29] LABS: Rheumatoid Factor IGA < 7; Rheumatoid Factor IGM < 7
== END ==
PROVIDERS: PCP Family Medicine; Visit Provider Family Medicine
DX: M19.071 Primary osteoarthritis, right ankle and foot (principal); M19.072 Primary osteoarthritis, left ankle and foot
CPT/HCPCS: 85651; 86140; 86431

== ENCOUNTER 2024-08-04 14:31 | Emergency (ER) | payer BC, SELFPAY ==
[2024-08-04] VITALS (15 sets, daily range): BP systolic 139–163; BP diastolic 66–98; PULSE 56–77; RESP 17–20; TEMP 36.8–37.1; O2SAT 95–99; BMI 29.0
--- NOTE | 2024-08-04 15:04 | XR_ITS ---
FINAL REPORT CLINICAL HISTORY: Puncture wound, left third digit COMPARISON: None FINDINGS: LEFT HAND Three views demonstrate no acute fracture or dislocation. The visualized joint spaces are normally aligned. The soft tissues are unremarkable. No radiopaque foreign body is identified. IMPRESSION: No radiopaque foreign body identified. Reviewed, Interpreted and Dictated by Gurmeet Lund MD Transcribed by Марина Doss Authenticated and [facility]
--- NOTE | 2024-08-04 15:09 | HMH.EDGENADL ---
Discharge Plan Disposition Patient Disposition: Xfer Other Condition: Good Prescriptions Prescriptions: New cephalexin 500 mg capsule 500 mg PO Q8H 10 Days Qty: 30 0RF No Action methylprednisolone [Medrol (Manuel)] 4 mg tablets,dose pack See Rx Instructions PO PER PKG DIR Qty: 21 0RF Rx Instructions: PO PER PKG DIR for 6 days benzonatate 100 mg capsule 100 mg PO TID PRN (Reason: cough) Qty: 30 0RF azithromycin 250 mg tablet See Rx Instructions PO .COMPLEX Qty: 6 0RF Rx Instructions: For 250 mg dose pack: take 500 mg today (day 1), then 250 mg for 4 days (days 2-5) PO testosterone cypionate 200 mg/mL oil 200 mg IM Q2W Qty: 2 3RF lisinopril 10 mg tablet See Rx Instructions .ROUTE .COMPLEX Qty: 90 1RF Dose Instruction: TAKE 1 TABLET BY MOUTH EVERY NIGHT AT BEDTIME FOR BLOOD PRESSURE Rx Instructions: TAKE 1 TABLET BY MOUTH EVERY NIGHT AT BEDTIME FOR BLOOD PRESSURE venlafaxine [Effexor XR] 37.5 mg capsule,extended release 24hr See Rx Instructions .ROUTE .COMPLEX Rx Instructions: TAKE 1 CAPSULE BY MOUTH DAILY patient needs a follow up before anymore refills Referrals Follow up/Referrals: Nathan Cornejo MD [Primary Care Provider] - See instructions Activity Restrictions/Add. Instructions Additional Instructions/Restrictions: Please proceed directly to [facility] Clinical Impressions Clinical Impression: Nailbed avulsion Instructions Patient Instructions: DI for Laceration Repair Print Language Print Language: Tajik Discharge ED Provider: Nhan Cheek General Adult HPI <GLEN Nicholson - Last Filed: 08/04/24 18:32> General Chief complaint: Wound/Laceration Stated complaint: AO 1400 Drill bit through left ring finger Time Seen by Provider: 08/04/24 15:03 Mode of Arrival: Ambulatory Source of Information: Patient Limitations: No Limitations History of Present Illness HPI narrative: 53-year-old male presents to the emergency department with a left fourth digit injury that occurred approximately 1 hour ago. Describes it as he was using a drill bit , when he missed and a drill bit went through his left fourth digit on the medial aspect of the DIP joint/fingernail. Patient has any fever chills chest pain shortness of breath nausea vomiting constipation diarrhea no abdominal pain no urinary type symptomatology, patient denies any numbness tingling, admits to pain localized in the finger, but bleeding is controlled. Patient is unsure of tetanus prophylaxis, other past medical history consistent with hypertension, anxiety/depression, denies any tobacco use, current everyday alcohol use approximately 6 beers , daily, denies any other drug use, initial triage vitals unremarkable. Onset (ago): hour(s) Related Data Home Medications ?Medication ?Instructions ?Recorded ?Confirmed venlafaxine 37.5 mg See Rx Instructions .Route .COMPLEX 03/05/24 05/04/24 capsule,extended release 24 hr (Effexor XR) Previous Rx's ?Medication ?Instructions ?Recorded azithromycin 250 mg tablet See Rx Instructions PO .COMPLEX #6 05/04/24 tabs benzonatate 100 mg capsule 100 mg PO TID PRN cough #30 caps 05/04/24 methylprednisolone 4 mg tablets in See Rx Instructions PO PER PKG DIR 05/04/24 a dose pack (Medrol (Manuel)) #21 tabs testosterone cypionate 200 mg/mL 200 mg IM Q2W #2 mL 05/15/24 intramuscular oil lisinopril 10 mg tablet See Rx Instructions .Route 06/16/24 .COMPLEX #90 tabs cephalexin 500 mg capsule 500 mg PO Q8H 10 days #30 caps 08/04/24 Allergies Allergy/AdvReac Type Severity Reaction Status Date / Time No Known Allergies Allergy Verified 05/04/24 09:53 [facility] <GLEN Nicholson - Last Filed: 08/04/24 18:32> [facility] Disclaimer: The information contained in this section may have been updated after the patient was seen, as this information can be updated by other users. Medical History (Updated 08/04/24 @ 18:02 by Lynnette Mack DO) Sinusitis Hypertension Low testosterone in male Skin lesion Colon cancer screening Surgical History (Updated 03/05/24 @ 14:45 by Jacy Cotton RN) No significant past surgical history Family History (Updated 03/05/24 @ 14:45 by Jacy Cotton RN) Other No significant family history Social History (Updated 03/05/24 @ 14:42 by Jacy Cotton RN) Smoking Status: Never smoker alcohol intake: current alcohol intake frequency: a few times a week substance use type: denies use current occupational status: employed Travel in the last 8 weeks?: None household members: spouse housing: house current occupation: [employer] current occupational exposures/hazards: Yes caffeine: No Have you lived/traveled outside [place] in past 30 days?: No Contact w/someone who lives/traveled outside US past 30 days?: No Exposure to someone with infectious disease in past 14 days?: No Do you have a fever (greater than 100.4 F or 38 C)?: No Have you tested positive for COVID-19?: No Exposed to someone with COVID-19 in past 14 days?: No Do you have a sore throat?: No Do you have a cough?: No Do you have any weakness?: No Do you have any diarrhea?: No Are you experiencing any unusual bleeding?: No Do you have any muscle aches/pain?: No Do you have any abdominal pain?: No Are you experiencing loss of taste or smell?: No Other Medical History Have you received the Flu Vaccine for this season: No Have you received the Pneumonia Vaccine: No <GLEN Nicholson - Last Filed: 08/04/24 18:32> ROS Obtained: Yes All systems reviewed & no additional complaints except as documented Physical Exam <GLEN Nicholson - Last Filed: 08/04/24 18:32> General General appearance: alert and in no apparent distress Head Head exam: atraumatic and normocephalic Eye Eye exam: Present PERRL and EOMI ENT ENT exam: Present mucous membranes moist Neck Neck exam: Present normal inspection Chest Chest inspection: Present normal inspection and symmetric chest wall rise Respiratory Respiratory exam: Present normal lung sounds bilaterally; Absent respiratory distress Cardiovascular Cardiovascular exam: Present regular rate and normal rhythm Abdominal Exam Abdominal exam: Present soft; Absent tenderness Extremities Exam Extremities exam: Present normal inspection, full ROM, tenderness and other (Obvious deformity/nail injury to the medial aspect of the DIP joint on the left hand fourth digit, no obvious open fracture or dislocation, moves extremity to command, otherwise neurovascular intact.) Neurological Exam Neurological exam: Present alert and oriented X3 Psychiatric Psychiatric exam: Present normal affect Skin Skin exam: Present warm and dry Medical Decision Making <GLEN Nicholson - Last Filed: 08/04/24 18:32> Medical Records Medical records reviewed: Yes I reviewed the patient's medical records. Screening: Per USPSTF and CDC recommendations, given the prevalence of disease in our region, it is our hospital?s policy to screen for HIV and viral Hepatitis for all patients aged 18 and over and those with ongoing risk factors. Alex Inquiry Pt receiving controlled substance: No Alex was queried for this patient: No Vital Signs: 08/04/24 15:01 08/04/24 15:16 08/04/24 15:30 Temperature 98.7 F Temperature Source Oral Pulse Rate 77 65 Pulse Rate [Left Radial] 71 Respiratory Rate 17 Blood Pressure 145/95 H 148/98 H Blood Pressure [Right Arm] 163/90 H Blood Pressure Mean 115 Blood Pressure Mean [Right Arm] 114 Blood Pressure Source [Right Arm] Automatic Cuff Blood Pressure Position [Right Arm] Sitting 02 Sat by Pulse Oximetry 96 97 97 Oxygen Delivery Method Room Air 08/04/24 15:45 08/04/24 16:00 08/04/24 16:15 Temperature Temperature Source Pulse Rate 66 63 61 Pulse Rate [Left Radial] Respiratory Rate Blood Pressure 151/92 H 148/98 H 148/89 H Blood Pressure [Right Arm] Blood Pressure Mean Blood Pressure Mean [Right Arm] Blood Pressure Source [Right Arm] Blood Pressure Position [Right Arm] 02 Sat by Pulse Oximetry 96 97 96 Oxygen Delivery Method 08/04/24 16:30 08/04/24 16:45 08/04/24 17:01 Temperature Temperature Source Pulse Rate 61 60 56 L Pulse Rate [Left Radial] Respiratory Rate Blood Pressure 147/85 H 151/97 H 139/90 Blood Pressure [Right Arm] Blood Pressure Mean Blood Pressure Mean [Right Arm] Blood Pressure Source [Right Arm] Blood Pressure Position [Right Arm] 02 Sat by Pulse Oximetry 95 98 96 Oxygen Delivery Method Room Air Room Air 08/04/24 17:15 08/04/24 17:30 08/04/24 17:45 Temperature Temperature Source Pulse Rate 66 59 L 60 Pulse Rate [Left Radial] Respiratory Rate Blood Pressure 154/90 H 140/82 145/86 H Blood Pressure [Right Arm] Blood Pressure Mean Blood Pressure Mean [Right Arm] Blood Pressure Source [Right Arm] Blood Pressure Position [Right Arm] 02 Sat by Pulse Oximetry 98 98 99 Oxygen Delivery Method Room Air Room Air Room Air Orders (Tests/Meds): ED MEDICATIONS Discontinued Medications Generic Name Dose Route Start Last Admin Trade Name Freq PRN Reason Stop Dose Admin Bacitracin 1 each 05/27/25 18:10 Bacitracin Oint 0.9gm Udp TP 08/04/24 18:11 ONCE ONE Cefazolin Sodium 1 gm 08/04/24 15:09 08/04/24 16:42 Cefazolin 1gm Vial IM 08/04/24 15:10 1 gm ONCE ONE Administration Lidocaine HCl 10 ml 08/04/24 17:11 08/04/24 17:38 Lidocaine 1% 10ml Mdv IJ 08/04/24 17:12 10 ml ONCE ONE Administration Tetanus/Reduced Diphtheria/Acell Pertussis 0.5 ml 08/04/24 15:09 08/04/24 16:41 Tet/Diphth/Pert-Adult 0.5ml Syringe IM 08/04/24 15:10 0.5 ml .ONCE ONE Administration ORDERS Category Date Time Status XR hand LT min 3V Stat Exams 08/04/24 15:04 Completed Medical Decision Narrative: 53-year-old male presents to the emergency department with a left fourth digit puncture wound/injury, differential diagnose include but limited to nailbed injury, laceration, puncture wound, tuft fracture, open fracture, among others. Will obtain x-ray of the hand, will give 1 g IM Ancef for prophylaxis of tuft fracture/versus open fracture, will update tetanus prophylaxis. Will copiously irrigate the wound, and use Hibiclens for antiseptic. I reviewed the patient's left hand x-ray along the corresponding radiologic report, no radiopaque foreign body identified, no acute fracture or dislocation. I discussed patient's case with the attending physician Dr. Mack, she saw and examined the patient as well and help perform suture/repair of the nailbed. See procedure note for full details I along with the attending physician utilized copious irrigation with normal saline, Hibiclens scrub, utilizing, 5 mL of 1% lidocaine without epi, digital nerve block was performed, patient tolerated well, approximately ten 5-0 absorbable sutures, were used, for complex nailbed laceration/avulsion, patient's wound/nailbed was approximated after some debridement and removal of diseased/damaged nail, bed tacked under, and laceration repair was performed, patient tolerated procedure well. Consultation with [facility] hand for outpatient follow-up/recommendations was performed by attending physician. Xeroform and bulky dressing applied to the wound. DO Frederick: I was consulted by the TREVOR, and we discussed the complexity of the problems being addressed. I approved the treatment and management plan for this patient's care in the emergency department, thus performing a substantive portion of the medical decision making. I independently interpreted x-ray prior to radiology read and noted no acute fracture. Initially, we had planned to remove the fragmented nail and sutured the nailbed, however when we attempted to suture the nailbed, the tissue was noted to be very friable and kept tearing secondary to the damage that was done by the power drill. We did remove fragmented portions of the nail and attempted to approximate things to the best of our ability, however the sutures are not holding well because the tissues of his nailbed are very mangled. Ultimately, given that the tissues are very mangled and we are having difficulty approximating the tissues here, I called for hand consultation for higher level of care. Per Dr. Garcia, Dr. Glasgow with hand surgery would like the patient to be transferred to [facility] ED to be seen by hand surgery there. Patient is agreeable with this. He was transferred in stable condition for further evaluation. Lynnette Mack DO <Lynnette Mack DO - Last Filed: 08/04/24 18:26> Vital Signs: 08/04/24 15:01 08/04/24 15:16 08/04/24 15:30 Temperature 98.7 F Temperature Source Oral Pulse Rate 77 65 Pulse Rate [Left Radial] 71 Respiratory Rate 17 Blood Pressure 145/95 H 148/98 H Blood Pressure [Right Arm] 163/90 H Blood Pressure Mean 115 Blood Pressure Mean [Right Arm] 114 Blood Pressure Source [Right Arm] Automatic Cuff Blood Pressure Position [Right Arm] Sitting 02 Sat by Pulse Oximetry 96 97 97 Oxygen Delivery Method Room Air 08/04/24 15:45 08/04/24 16:00 08/04/24 16:15 Temperature Temperature Source Pulse Rate 66 63 61 Pulse Rate [Left Radial] Respiratory Rate Blood Pressure 151/92 H 148/98 H 148/89 H Blood Pressure [Right Arm] Blood Pressure Mean Blood Pressure Mean [Right Arm] Blood Pressure Source [Right Arm] Blood Pressure Position [Right Arm] 02 Sat by Pulse Oximetry 96 97 96 Oxygen Delivery Method 08/04/24 16:30 08/04/24 16:45 08/04/24 17:01 Temperature Temperature Source Pulse Rate 61 60 56 L Pulse Rate [Left Radial] Respiratory Rate Blood Pressure 147/85 H 151/97 H 139/90 Blood Pressure [Right Arm] Blood Pressure Mean Blood Pressure Mean [Right Arm] Blood Pressure Source [Right Arm] Blood Pressure Position [Right Arm] 02 Sat by Pulse Oximetry 95 98 96 Oxygen Delivery Method Room Air Room Air 08/04/24 17:15 08/04/24 17:30 08/04/24 17:45 Temperature Temperature Source Pulse Rate 66 59 L 60 Pulse Rate [Left Radial] Respiratory Rate Blood Pressure 154/90 H 140/82 145/86 H Blood Pressure [Right Arm] Blood Pressure Mean Blood Pressure Mean [Right Arm] Blood Pressure Source [Right Arm] Blood Pressure Position [Right Arm] 02 Sat by Pulse Oximetry 98 98 99 Oxygen Delivery Method Room Air Room Air Room Air Orders (Tests/Meds): ED MEDICATIONS Discontinued Medications Generic Name Dose Route Start Last Admin Trade Name Freq PRN Reason Stop Dose Admin Bacitracin 1 each 08/04/24 18:10 Bacitracin Oint 0.9gm Udp TP 08/04/24 18:11 ONCE ONE Cefazolin Sodium 1 gm 08/04/24 15:09 08/04/24 16:42 Cefazolin 1gm Vial IM 08/04/24 15:10 1 gm ONCE ONE Administration Lidocaine HCl 10 ml 08/04/24 17:11 08/04/24 17:38 Lidocaine 1% 10ml Mdv IJ 08/04/24 17:12 10 ml ONCE ONE Administration Tetanus/Reduced Diphtheria/Acell Pertussis 0.5 ml 08/04/24 15:09 08/04/24 16:41 Tet/Diphth/Pert-Adult 0.5ml Syringe IM 08/04/24 15:10 0.5 ml .ONCE ONE Administration ORDERS Category Date Time Status XR hand LT min 3V Stat Exams 08/04/24 15:04 Completed Medical Decision Narrative: 53-year-old male presents to the emergency department with a left fourth digit puncture wound/injury, differential diagnose include but limited to nailbed injury, laceration, puncture wound, tuft fracture, open fracture, among others. Will obtain x-ray of the hand, will give 1 g IM Ancef for prophylaxis of tuft fracture/versus open fracture, will update tetanus prophylaxis. Will copiously irrigate the wound, and use Hibiclens for antiseptic. I reviewed the patient's left hand x-ray along the corresponding radiologic report, no radiopaque foreign body identified, no acute fracture or dislocation. I discussed patient's case with the attending physician Dr. Mack, she saw and examined the patient as well and help perform suture/repair of the nailbed. See procedure note for full details I along with the attending physician utilized copious irrigation with normal saline, Hibiclens scrub, utilizing, 5 mL of 1% lidocaine without epi, digital nerve block was performed, patient tolerated well, approximately ten 5-0 absorbable sutures, were used, for complex nailbed laceration/avulsion, patient's wound/nailbed was approximated after some debridement and removal of diseased/damaged nail, bed tacked under, and laceration repair was performed. Consultation with [facility] hand for outpatient follow-up/recommendations was performed by attending physician. DO Frederick: I was consulted by the TREVOR, and we discussed the complexity of the problems being addressed. I approved the treatment and management plan for this patient's care in the emergency department, thus performing a substantive portion of the medical decision making. I independently interpreted x-ray prior to radiology read and noted no acute fracture. Initially, we had planned to remove the fragmented nail and sutured the nailbed, however when we attempted to suture the nailbed, the tissue was noted to be very friable and kept tearing secondary to the damage that was done by the power drill. We did remove fragmented portions of the nail and attempted to approximate things to the best of our ability, however the sutures are not holding well because the tissues of his nailbed are very mangled. Ultimately, given that the tissues are very mangled and we are having difficulty approximating the tissues here, I called for hand consultation for higher level of care. Per Dr. Garcia, Dr. Glasgow with hand surgery would like the patient to be transferred to [facility] ED to be seen by hand surgery there. Patient is agreeable with this. He was transferred in stable condition for further evaluation. Lynnette Mack DO Procedures <GLEN Nicholson - Last Filed: 08/04/24 18:32> Laceration Laceration 1: Site: finger Side (If applicable): left Size (cm): 1 Description: flap and irregular Depth: involves subcutaneous layer and [id number] Local Anesthetic: lidocaine 1% Amount of anesthesia used (mL): 5 Pre-repair: wound explored, irrigated extensively and extensive debridement Skin layer closed with: other Size (cm): 5-0 Number of sutures: 10 Technique: simple, interrupted Subcutaneous layer closed with: chromic gut Size: 5-0 Nerve Block Nerve Block 1: Time out performed: Yes Local Anesthetic: lidocaine 1% Amount of anesthesia used (mL): 5 Side: Left Nerve Blocks: digital Patient Tolerated Procedure: well and no complications Complications: none Critical Care <Lynnette Mack, DO - Last Filed: 08/04/24 18:26> Critical Care Time Critical Care Time: No
[2024-08-04] MEDS: TET/DIPHTH/PERT-ADULT 0.5ML SYRINGE 0.5 ML IM (16:41)
[2024-08-04] MEDS: CEFAZOLIN 1GM VIAL 1 GM IM (16:42)
[2024-08-04] MEDS: LIDOCAINE 1% 10ML MDV 10 ML IJ (17:38)
--- NOTE | 2024-08-04 18:01 | PC.NURSE ---
calling [facility] at this time.
--- NOTE | 2024-08-04 18:05 | PC.NURSE ---
calling [facility] to [facility] at this time.
--- NOTE | 2024-08-04 18:35 | PC.NURSE ---
report called to GIN[facility] Gamez
[2024-08-04] MEDS: BACITRACIN OINT 0.9GM UDP 1 EACH TP (18:36)
--- NOTE | 2024-08-04 18:43 | HMH.EDGENADL ---
Discharge Plan Disposition Patient Disposition: Xfer Other Condition: Good Prescriptions Prescriptions: New cephalexin 500 mg capsule 500 mg PO Q8H 10 Days Qty: 30 0RF No Action methylprednisolone [Medrol (Manuel)] 4 mg tablets,dose pack See Rx Instructions PO PER PKG DIR Qty: 21 0RF Rx Instructions: PO PER PKG DIR for 6 days benzonatate 100 mg capsule 100 mg PO TID PRN (Reason: cough) Qty: 30 0RF azithromycin 250 mg tablet See Rx Instructions PO .COMPLEX Qty: 6 0RF Rx Instructions: For 250 mg dose pack: take 500 mg today (day 1), then 250 mg for 4 days (days 2-5) PO testosterone cypionate 200 mg/mL oil 200 mg IM Q2W Qty: 2 3RF lisinopril 10 mg tablet See Rx Instructions .ROUTE .COMPLEX Qty: 90 1RF Dose Instruction: TAKE 1 TABLET BY MOUTH EVERY NIGHT AT BEDTIME FOR BLOOD PRESSURE Rx Instructions: TAKE 1 TABLET BY MOUTH EVERY NIGHT AT BEDTIME FOR BLOOD PRESSURE venlafaxine [Effexor XR] 37.5 mg capsule,extended release 24hr See Rx Instructions .ROUTE .COMPLEX Qty: 30 0RF Rx Instructions: TAKE 1 CAPSULE BY MOUTH DAILY patient needs a follow up before anymore refills Referrals Follow up/Referrals: Nathan Cornejo MD [Primary Care Provider] - See instructions Activity Restrictions/Add. Instructions Additional Instructions/Restrictions: Please proceed directly to [facility] Clinical Impressions Clinical Impression: Nailbed avulsion Stand Alone Forms Stand Alone Forms: Transfer Record - ED Instructions Patient Instructions: DI for Laceration Repair Print Language Print Language: Welsh Discharge ED Provider: Nhan Cheek General Adult HPI General Chief complaint: Wound/Laceration Stated complaint: AO 1400 Drill bit through left ring finger Time Seen by Provider: 08/04/24 15:03 Mode of Arrival: Ambulatory Source of Information: Patient Limitations: No Limitations History of Present Illness Onset (ago): hour(s) Related Data Previous Rx's ?Medication ?Instructions ?Recorded azithromycin 250 mg tablet See Rx Instructions PO .COMPLEX #6 05/04/24 tabs benzonatate 100 mg capsule 100 mg PO TID PRN cough #30 caps 05/04/24 methylprednisolone 4 mg tablets in See Rx Instructions PO PER PKG DIR 05/04/24 a dose pack (Medrol (Manuel)) #21 tabs testosterone cypionate 200 mg/mL 200 mg IM Q2W #2 mL 05/15/24 intramuscular oil lisinopril 10 mg tablet See Rx Instructions .Route 06/16/24 .COMPLEX #90 tabs cephalexin 500 mg capsule 500 mg PO Q8H 10 days #30 caps 08/04/24 venlafaxine 37.5 mg See Rx Instructions .Route 08/12/24 capsule,extended release 24 hr .COMPLEX #30 caps (Effexor XR) Allergies Allergy/AdvReac Type Severity Reaction Status Date / Time No Known Allergies Allergy Verified 05/04/24 09:53 [facility] Disclaimer: The information contained in this section may have been updated after the patient was seen, as this information can be updated by other users. Medical History (Updated 08/04/24 @ 18:02 by Lynnette Mack DO) Sinusitis Hypertension Low testosterone in male Skin lesion Colon cancer screening Surgical History (Updated 03/05/24 @ 14:45 by Jacy Cotton RN) No significant past surgical history Family History (Updated 03/05/24 @ 14:45 by Jacy Cotton RN) Other No significant family history Social History (Updated 03/05/24 @ 14:42 by Jacy Cotton RN) Smoking Status: Never smoker alcohol intake: current alcohol intake frequency: a few times a week substance use type: denies use current occupational status: employed Travel in the last 8 weeks?: None household members: spouse housing: house current occupation: [employer] current occupational exposures/hazards: Yes caffeine: No Have you lived/traveled outside [place] in past 30 days?: No Contact w/someone who lives/traveled outside US past 30 days?: No Exposure to someone with infectious disease in past 14 days?: No Do you have a fever (greater than 100.4 F or 38 C)?: No Have you tested positive for COVID-19?: No Exposed to someone with COVID-19 in past 14 days?: No Do you have a sore throat?: No Do you have a cough?: No Do you have any weakness?: No Do you have any diarrhea?: No Are you experiencing any unusual bleeding?: No Do you have any muscle aches/pain?: No Do you have any abdominal pain?: No Are you experiencing loss of taste or smell?: No Other Medical History Have you received the Flu Vaccine for this season: No Have you received the Pneumonia Vaccine: No ROS Obtained: Yes All systems reviewed & no additional complaints except as documented Physical Exam General General appearance: alert and in no apparent distress Respiratory Respiratory exam: Present normal lung sounds bilaterally Cardiovascular Cardiovascular exam: Present regular rate Neurological Exam Neurological exam: Present alert Medical Decision Making Medical Records Screening: Per USPSTF and CDC recommendations, given the prevalence of disease in our region, it is our hospital?s policy to screen for HIV and viral Hepatitis for all patients aged 18 and over and those with ongoing risk factors. Alex Inquiry Pt receiving controlled substance: No Vital Signs: 08/04/24 15:01 08/04/24 15:16 08/04/24 15:30 Temperature 98.7 F Temperature Source Oral Pulse Rate 77 65 Pulse Rate [Left Radial] 71 Respiratory Rate 17 Blood Pressure 145/95 H 148/98 H Blood Pressure [Right Arm] 163/90 H Blood Pressure Mean 115 Blood Pressure Mean [Right Arm] 114 Blood Pressure Source [Right Arm] Automatic Cuff Blood Pressure Position [Right Arm] Sitting 02 Sat by Pulse Oximetry 96 97 97 Oxygen Delivery Method Room Air 08/04/24 15:45 08/04/24 16:00 08/04/24 16:15 Temperature Temperature Source Pulse Rate 66 63 61 Pulse Rate [Left Radial] Respiratory Rate Blood Pressure 151/92 H 148/98 H 148/89 H Blood Pressure [Right Arm] Blood Pressure Mean Blood Pressure Mean [Right Arm] Blood Pressure Source [Right Arm] Blood Pressure Position [Right Arm] 02 Sat by Pulse Oximetry 96 97 96 Oxygen Delivery Method 08/04/24 16:30 08/04/24 16:45 08/04/24 17:01 Temperature Temperature Source Pulse Rate 61 60 56 L Pulse Rate [Left Radial] Respiratory Rate Blood Pressure 147/85 H 151/97 H 139/90 Blood Pressure [Right Arm] Blood Pressure Mean Blood Pressure Mean [Right Arm] Blood Pressure Source [Right Arm] Blood Pressure Position [Right Arm] 02 Sat by Pulse Oximetry 95 98 96 Oxygen Delivery Method Room Air Room Air 08/04/24 17:15 08/04/24 17:30 08/04/24 17:45 Temperature Temperature Source Pulse Rate 66 59 L 60 Pulse Rate [Left Radial] Respiratory Rate Blood Pressure 154/90 H 140/82 145/86 H Blood Pressure [Right Arm] Blood Pressure Mean Blood Pressure Mean [Right Arm] Blood Pressure Source [Right Arm] Blood Pressure Position [Right Arm] 02 Sat by Pulse Oximetry 98 98 99 Oxygen Delivery Method Room Air Room Air Room Air 08/04/24 18:01 08/04/24 18:31 08/04/24 18:49 Temperature 98.3 F Temperature Source Pulse Rate 64 65 72 Pulse Rate [Left Radial] Respiratory Rate 20 Blood Pressure 147/66 H 152/92 H 140/79 Blood Pressure [Right Arm] Blood Pressure Mean Blood Pressure Mean [Right Arm] Blood Pressure Source [Right Arm] Blood Pressure Position [Right Arm] 02 Sat by Pulse Oximetry 96 96 Oxygen Delivery Method Room Air Orders (Tests/Meds): ED MEDICATIONS Discontinued Medications Generic Name Dose Route Start Last Admin Trade Name Freq PRN Reason Stop Dose Admin Bacitracin 1 each 08/04/24 18:10 08/04/24 18:36 Bacitracin Oint 0.9gm Udp TP 08/04/24 18:11 1 each ONCE ONE Administration Cefazolin Sodium 1 gm 08/04/24 15:09 08/04/24 16:42 Cefazolin 1gm Vial IM 08/04/24 15:10 1 gm ONCE ONE Administration Ibuprofen 800 mg 08/04/24 18:45 08/04/24 18:47 Ibuprofen 800 Mg Tablet PO 08/04/24 18:46 800 mg ONCE ONE Administration Lidocaine HCl 10 ml 08/04/24 17:11 08/04/24 17:38 Lidocaine 1% 10ml Mdv IJ 08/04/24 17:12 10 ml ONCE ONE Administration Tetanus/Reduced Diphtheria/Acell Pertussis 0.5 ml 08/04/24 15:09 08/04/24 16:41 Tet/Diphth/Pert-Adult 0.5ml Syringe IM 08/04/24 15:10 0.5 ml .ONCE ONE Administration ORDERS Category Date Time Status XR hand LT min 3V Stat Exams 08/04/24 15:04 Completed Medical Decision Narrative: Upon discharge to outside facility patient was given 800 milligram p.o. ibuprofen for pain. Critical Care Critical Care Time Critical Care Time: No
[2024-08-04] MEDS: IBUPROFEN 800 MG TABLET PO (18:47)
== END 2024-08-04 18:51 | disposition other institution (70) ==
PROVIDERS: Emergency Provider Emergency Medicine; PCP Family Medicine
DX: S61.305A Unspecified open wound of left ring finger with damage to nail, initial encounter (principal); W29.8XXA Contact with other powered hand tools and household machinery, initial encounter; Z23 Encounter for immunization
CPT/HCPCS: 12041; 73130; 90471; 90715; 96372; 99283

== ENCOUNTER 2024-11-11 16:01 | Outpatient (CLI) | payer BC, SELFPAY ==
[2024-11-11 19:51] LABS: Hematocrit 46.8 % (42.0-52.0); Hemoglobin 15.6 g/dL (14.1-18.0); Immature Granulocytes % 0.4 %; Mean Corpuscular HGB Conc 33.3 g/dL (31.8-35.4); Mean Corpuscular Hemoglobin 30.5 pg (27.0-31.2); Mean Corpuscular Volume 91.4 fl (80-94); Nucleated Red Blood Cells % 0 %; Platelet Count 324 K/mm3 (142-424); Red Blood Count 5.12 M/mm3 (4.60-6.20); Red Cell Distribution Width-SD 42.8 fL; White Blood Count 7.1 K/mm3 (4.8-10.8)
[2024-11-11 20:33] LABS: Anion Gap 13.5 mEq/L (5-15); Blood Urea Nitrogen 15 mg/dl (9-20); Calcium 9.8 mg/dl (8.4-10.2); Carbon Dioxide 27 mmol/L (22.0-30.0); Chloride 102 mmol/L (98-107); Creatinine,Serum 1.00 mg/dl (0.66-1.25); Estimated Glomerular Filt Rate 78 ml/min (>60); GFR (African American) 95 ML/MIN (>60); Glucose 91 mg/dl (74-100); Potassium 4.5 mmoL/L (3.5-5.1); Sodium 138 mmol/L (136-145)
--- OUTSIDE RECORDS SUMMARY | 2024-11-13 08:40 | XMS_ITS | Clinical Summary ---
[facility] Address [address] [place] [address] Care Team Providers Care Holter Technician Name Role Phone Marco Antonio Blancas MD Primary Care Provider [phone] Allergies No known active allergies Medications No known medications Family History Medical History Relation Name Comments No Known Problems Brother No Known Problems Father No Known Problems Mother Relation Name Status Comments Brother Father Mother Social History Tobacco Use Types Packs/Day Years Used Date Smoking Tobacco: Some Days Cigarettes Smokeless Tobacco: Never Alcohol Use Standard Drinks/Week Comments Yes 8 (1 standard drink = 0.6 oz pur e alcohol) 6-8 cans of beer daily Abuse Screen Answer Date Recorded Unsafe at Home or Work/School Not on file Feels Threatened by Someone? Not on file 11/2022 Does Anyone Keep You from Co ntacting Others or Doint Things Outside the Home? Not on file 12/17/2022 Physical Sign of Abuse Present Not on file 1 Housing Stability Answer Date Recorded Current Living Arrangements Not on file 11/2022 Potentially Unsafe Housing Conditions Not on rui e 12/17/2022 Family and Community Support Answer Te e Recorded Help with Day-to-Day Activities Not on file 12/17/2022 Lonely or Isolated Not on file 12/17/2022 Employment Answer Date Recorded Do you want help finding or keeping work or a pool b? Not on file 12/17/2022 Disabilities Answer Date Recorded Concentrating, Remembering, or Making Decisions Difficulty Not on file 12/17/2022 Doing Errands Independently Difficulty Not on fi le 12/17/2022 Education Answer Date Recorded Help with school or training? Not on file Preferred Language Not on file 12/17/2022 Sex and Gender Information Value Date Recorded Sex Assigned at Not on file Legal Sex Male 11:40 AM EDT Gender Identity Not on file Sexual Orientation Not on file Last Filed Vital Signs Vital Sign Reading Time Taken Comments Blood Pressure 143/92 10/21/2019 1:35 PM EDT Pulse 68 10/21/2019 1:35 PM EDT Temperature 36.9 C (98.5 F) 10/21/2019 1:35 PM EDT Respiratory Rate 18 10/21/2019 1:35 PM EDT Oxygen Saturation 98% 10/21/2019 1:35 PM EDT Inhaled Oxygen Concentration - - Weight 104 kg (230 lb) 10/21/2019 1:35 PM EDT Height 182.9 cm (6') 10/21/2019 1:35 PM EDT Body Mass Index 31.19 10/21/2019 1:35 PM EDT Plan of Treatment Health Maintenance Due Date Last Done Comments ANNUAL PHYSICAL 1970 HEPATITIS C SCREENING 1970 TDAP/TD VACCINES (2 - Tdap) 05/13/2006 05/13/1996 COLOGUARD 12/08/2015 COLON CANCER SCREENING 5 YEAR SIGMOIDOSCOPY 12/08/2015 COLONOSCOPY 12/08/2015 COLORECTAL CANCER SCREENING 12/08/2015 CT COLONOGRAPHY 12/08/2015 FECAL OCCULT BLOOD TEST 12/08/2015 FIT Testing (1 year) 12/08/2015 Pneumococcal Vaccine 50+ (1 of 1 - PCV) 2020 ZOSTER VACCINE (1 of 2) 2020 COVID-19 Vaccine (1 - season) 2024 INFLUENZA VACCINE 12/09/2024 Insurance [facility] Care Teams Holter Technician Relationship Specialty Start Date End Date Marco Antonio Blancas MD PCP - General Emergency Medicine 10/21/19
--- OUTSIDE RECORDS SUMMARY | 2024-11-13 08:40 | XMS_ITS | Clinical Summary ---
Author Organization Healthcare Address [address] [place] [address] Care Team Providers Care Controls Operator Molded Goods Name Role Phone Unavailable Primary Care Provider Unavailabl e Social History Tobacco Use Types Packs/Day Years Used Date Smoking Tobacco: Never Assessed Sex and Gender Information Value Date Recorded Sex Assigned at Not on file Legal Sex Male 7:35 PM EDT Gender Identity Not on file Sexual Orientation Not on file Last Filed Vital Signs Vital Sign Reading Time Taken Comments Blood Pressure 145/86 08/04/2024 6:21 PM EDT Pulse 60 08/04/2024 6:21 PM EDT Temperature 37.1 C (98.7 F) 08/04/2024 6:21 PM EDT Respiratory Rate 17 08/04/2024 6:21 PM EDT Oxygen Saturation 99% 08/04/2024 6:21 PM EDT RA Inhaled Oxygen Concentration - - Weight - - Height - - Body Mass Index - - Plan of Treatment Not on file
== END 2024-11-11 23:59 | disposition home or self-care (01) ==
LOC: LAB.DROPOF 11-13 08:23
PROVIDERS: PCP Student in an Organized Health Care Education/Training Program; Visit Provider Student in an Organized Health Care Education/Training Program
DX: Z12.5 Encounter for screening for malignant neoplasm of prostate (principal); I10 Essential (primary) hypertension; R79.89 Other specified abnormal findings of blood chemistry
CPT/HCPCS: 80048; 84402; 84403; 85025; G0103

== ENCOUNTER 2025-02-10 08:25 | Outpatient (CLI) | payer BC, SELFPAY ==
[2025-02-11 00:13] LABS: Hepatitis C Ab Qual. W/ RFX NEGATIVE (Negative)
[2025-02-12 07:10] LABS: Hepatitis B Surface Antigen Negative (Negative)
== END 2025-02-10 23:59 ==
LOC: LAB.DROPOF 02-12 08:25
PROVIDERS: PCP Student in an Organized Health Care Education/Training Program; Visit Provider Student in an Organized Health Care Education/Training Program
DX: Z11.59 Encounter for screening for other viral diseases (principal)
CPT/HCPCS: 86803; 87340; 87389